=== PATIENT | female | born 1985 | race African-American/Black ===

== ENCOUNTER 2021-04-27 08:02 | Emergency (ER) | payer OTHER ==
[~2021-04-27] VITALS: Ht 160 cm; Wt 60.0 kg
[2021-04-27] MEDS ORDERED: KETOROLAC 30MG/ML VIAL IM ONE (08:30)
[2021-04-27] MEDS ORDERED: ALBUTEROL 6.7GM HFA INHALER ORI ONE (08:30)
[2021-04-27] MEDS ORDERED: METOCLOPRAMIDE HCL 5MG TABLET PO ONE (08:30)
[2021-04-27] MEDS ORDERED: IBUP-2029 MT (11:28)
[2021-04-27] MEDS ORDERED: ALBU6.7H9 INH (11:28)
[2021-04-27 12:32] VITALS: BP 105/72
== END 2021-04-27 11:52 | disposition home or self-care (01) ==
LOC: ER 08:02
DX: U07.1 COVID-19 (principal); Z00.00 Encounter for general adult medical examination without abnormal findings
CPT/HCPCS: 71045; 81025; 93005; 94640; 96372; 99283; J1885; J8597